=== PATIENT | male | born 1995 | race Caucasian/White ===

== ENCOUNTER 2021-09-27 01:16 | Emergency (ER) | payer OTHER ==
[~2021-09-27] VITALS: Ht 185.4 cm; Wt 112.5 kg
--- NOTE | 2021-09-27 01:19 | NUR ---
Kvng meza in [facility] - 09/27/21 at 0120 by LAURENCE PT TAKEN TO BED 1
--- NOTE | 2021-09-27 01:19 | NUR ---
EDYTA CAMARA. TAKEN TO BED 1
[2021-09-27] MEDS ORDERED: NACL 0.9% 2,000 ML IV ONE ×2 (01:25→02:25)
[2021-09-27 01:30] VITALS: BP 126/82
[2021-09-27 02:14] LABS: BASOPHILS % (AUTO) 0.5 % (0.0-2.0); EOSINOPHILS % (AUTO) 0.4 % (0.0-4.0); HEMATOCRIT 39.7 % (36-52); HEMOGLOBIN 13.4 g/dL (12.0-18.0); LYMPHOCYTES # (AUTO) 1.5 K/uL (2.0-11.5); MEAN CORPUSCULAR HEMOGLOBIN 31 pg (27-31); MEAN CORPUSCULAR HGB CONC 34 g/dL (33-37); MEAN CORPUSCULAR VOLUME 92.6 fL (80-94); MONOCYTES # (AUTO) 0.4 K/uL (0.8-1.0); MONOCYTES % (AUTO) 5.5 % (1.7-9.3); NEUTROPHILS % (AUTO) 74.6 % (42.2-75.2); PLATELET COUNT (AUTO) 228 K/uL (140-450); RED BLOOD CELL COUNT(AUTO) 4.29 MIL/uL (4.20-6.10); RED CELL DISTRIBUTION WIDTH 13.3 % (11.6-13.7); WHITE BLOOD COUNT (AUTO) 8.1 K/uL (4.8-10.8)
[2021-09-27] MEDS ORDERED: ONDANSETRON 4 MG/2 ML VIAL IVP ONE (02:25)
[2021-09-27 02:30] LABS: ANION GAP 17.5 (8-16); CARBON DIOXIDE 24.5 mmol/L (21-32); CREATININE 0.9 mg/dL (0.6-1.3); TOTAL BILIRUBIN 0.9 mg/dL (0.0-1.0)
[2021-09-27 03:29] VITALS: BP 122/61
--- NOTE | 2021-09-27 03:29 | NUR ---
IV removed, catheter intact and site benign. Applied folded 4x4 gauze and tape to stop bleeding.
--- NOTE | 2021-09-27 03:30 | NUR ---
Patient discharged with v/s stable. Written and verbal after care instructions given and explained. Patient verbalized understanding. Ambulatory with steady gait. ID band removed. All questions addressed prior to discharge. Advised to follow up with PMD.
== END 2021-09-27 03:30 | disposition home or self-care (01) ==
LOC: MED 01:16
DX: F10.129 Alcohol abuse with intoxication, unspecified (principal); R11.2 Nausea with vomiting, unspecified; F32.9 Major depressive disorder, single episode, unspecified
CPT/HCPCS: 36415; 80053; 81002; 85025; 96361; 96374; 99283; G0482; J2405; J7030; 81025

== ENCOUNTER 2023-12-15 19:38 | Emergency (ER) | payer MEDICAID, OTHER ==
[~2023-12-15] VITALS: Ht 182.9 cm; Wt 104.3 kg
[2023-12-15 19:59] VITALS: BP 138/90; PULSE 79; RESP 16; TEMP 98.1; O2SAT 97
[2023-12-15] MEDS ORDERED: cefTRIAXone 500 MG in LIDOCAINE MPF 1% 1 ML IM ONE (22:05)
[2023-12-15] MEDS ORDERED: cefTRIAXone 500 MG VIAL ONE (22:17)
[2023-12-15] MEDS ORDERED: LIDOCAINE MPF 1% 5 ML ONE (22:18)
[2023-12-15] MEDS ORDERED: DOXY-690 PO (22:30)
[2023-12-15] MEDS ORDERED: IBUP-2213 PO (22:30)
== END 2023-12-15 22:40 | disposition home or self-care (01) ==
LOC: MED 19:38
DX: N50.812 Left testicular pain (principal); Z79.899 Other long term (current) drug therapy
CPT/HCPCS: 76870; 87491; 96372; 99285; J0696; J2001; Q0092